=== PATIENT | male | born 1995 | race Hispanic/Latino ===

== ENCOUNTER 2018-12-31 23:14 | Emergency (ER) | payer OTHER ==
[2018-12-31] MEDS ORDERED: TETANUS & DIPHTHERIA TOX,ADULT 0.5 ML VIAL ONE (23:45)
[2019-01-01] MEDS ORDERED: LIDOCAINE 1% MPF 30 ML VIAL ONE (00:01)
--- NOTE | 2019-01-01 00:32 | ER ---
Nurse's Notes [facility] Name: Andie Olivas Age: 23 yrs Sex: Male : 1995 Arrival Date: 12/31/2018 Time: 23:18 Bed 5 Private MD: Diagnosis: Dislocation base right 4th metacarpal. ( Reduced ) Presentation: 12/31 23:24 Presenting complaint: Patient states: that he was mad and hit a post. Now having right fc hand/wrist pain. Noted small puncture wound at base of 4th finger. Transition of care: patient was not received from another setting of care. Onset of symptoms was December 31, 2018 at 22:30. Risk Assessment: Do you want to hurt yourself or someone else? Patient reports no desire to harm self or others. Initial Sepsis Screen: Does the patient meet any 2 criteria? No. Patient's initial sepsis screen is negative. Does the patient have a suspected source of infection? No. Patient's initial sepsis screen is negative. Care prior to arrival: None. 23:24 Method Of Arrival: Ambulatory 23:24 Acuity: MARY LOU 4 Triage Assessment: 23:40 Injury Description: Deformity sustained to right hand. rr5 Historical: - Allergies: 23:26 No Known Allergies; fc - Home Meds: 23:26 None [Active]; fc - PMHx: 23:26 None; fc - PSHx: 23:26 None; fc - Immunization history:: Last tetanus immunization: unknown, Flu vaccine is not up to date. - Social history:: Smoking status: Patient uses tobacco products, Vaps, Patient uses alcohol, occasionally. - Ebola Screening: : Patient negative for fever greater than or equal to 101.5 degrees Fahrenheit, and additional compatible Ebola Virus Disease symptoms Patient denies exposure to infectious person Patient denies travel to an Ebola-affected area in the 21 days before illness onset. Screenin:27 Abuse screen: Denies threats or abuse. Nutritional screening: No deficits noted. Tuberculosis screening: Fall Risk None identified. Assessment: 23:40 General: Appears uncomfortable, Behavior is calm, cooperative, appropriate for age. ea Pain: Complains of pain in right hand. Neuro: Level of Consciousness is awake, alert, obeys commands, Oriented to person, place, time, situation. Cardiovascular: Patient's skin is warm and dry. Respiratory: Airway is patent Respiratory effort is even, unlabored, Respiratory pattern is regular, symmetrical. Musculoskeletal: Capillary refill < 3 seconds, Bony deformity noted of dorsum of right hand. 01/01 00:50 Reassessment: patient refused for arm sling. rr5 00:52 Reassessment: Patient appears in no apparent distress at this time. Patient is alert, rr5 oriented x 3, equal unlabored respirations, skin warm/dry/pink. discharge instruction given and explained without complaints made. cannot undo the armsling order. patient refused to received the arm sling. Patient states symptoms have improved. Vital Signs: 12/31 23:26 BP 141 / 93; Pulse 68; Resp 18; Temp 97.9(O); Pulse Ox 98% on R/A; Weight 136.08 kg fc (R); Height 6 ft. 3 in. (190.50 cm) (R); Pain 6/10; 01/01 00:50 BP 136 / 78; Pulse 65; Resp 17; Temp 97.5; Pulse Ox 100% ; rr5 04 23:26 Body Mass Index 37.50 (136.08 kg, 190.50 cm) ED Course: 12/31 23:18 Patient arrived in ED. es 23:21 Paul Luciano MD is Attending Physician. pkl 23:21 Thong Harry RN is Primary Nurse. rr5 23:25 Triage completed. fc 23:26 Arm band placed on Patient placed in an exam room, on a stretcher. fc 23:27 Patient has correct armband on for positive identification. Bed in low position. Call fc light in reach. 23:27 No provider procedures requiring assistance completed. fc 23:34 X-ray completed. Portable x-ray completed in exam room. Patient tolerated procedure sg4 well. 23:36 Hand Right 3 View XRAY In Process Unspecified. EDMS 01/01 00:29 Martin Gallo MD is Referral Physician. pkl 00:54 Patient did not have IV access during this emergency room visit. rr5 00:57 Hand Right 3 View XRAY In Process Unspecified. 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 Exp: ea 10/16/2020. Lot #: [id number]. } Route: IM; Site: right deltoid; 01/01 00:56 Follow up: Response: No adverse reaction rr5 00:41 Drug: KeFLEX 500 mg Route: PO; rr5 00:56 Follow up: Response: No adverse reaction rr5 Outcome: 00:31 Discharge ordered by . zeinab 00:54 Discharged to home ambulatory, with friend. rr5 00:54 Condition: stable 00:54 Discharge instructions given to patient, Instructed on discharge instructions, follow up and referral plans. medication usage, Demonstrated understanding of instructions, follow-up care, medications, Prescriptions given X 2. 00:55 Patient left the ED. rr5 Signatures: Dispatcher [employer] EDPaul Jara MD MD pkl Salyer, Edna es Chretien, Felicia, RN RN Kelsey Mcfarlane RN RN ea Garcia, Susana [facility] Thong Harry RN RN rr5
--- NOTE | 2019-01-01 00:32 | EDPHYS ---
Physician Documentation [facility] Name: Andie Olivas Age: 23 yrs Sex: Male : 1995 Arrival Date: 12/31/2018 Time: 23:18 Bed 5 Private MD: ED Physician Paul Luciano HPI: 12/31 23:26 This 23 yrs old Male presents to ER via Ambulatory with complaints of Hand pkl Injury. 23:26 The patient or guardian reports injury, a laceration, superficial ( 0.5 cm ). The pkl complaints affect the right hand diffusely. Context: resulted from using own fist to strike, wooden pole. Onset: The symptoms/episode began/occurred just prior to arrival. Historical: - Allergies: 23:26 No Known Allergies; fc - Home Meds: 23:26 None [Active]; fc - PMHx: 23:26 None; fc - PSHx: 23:26 None; fc - Immunization history:: Last tetanus immunization: unknown, Flu vaccine is not up to date. - Social history:: Smoking status: Patient uses tobacco products, Vaps, Patient uses alcohol, occasionally. - Ebola Screening: : Patient negative for fever greater than or equal to 101.5 degrees Fahrenheit, and additional compatible Ebola Virus Disease symptoms Patient denies exposure to infectious person Patient denies travel to an Ebola-affected area in the 21 days before illness onset. ROS: 23:26 Eyes: Negative for injury, pain, redness, and discharge, ENT: Negative for injury, pkl pain, and discharge, Neck: Negative for injury, pain, and swelling, Cardiovascular: Negative for chest pain, palpitations, and edema, Respiratory: Negative for shortness of breath, cough, wheezing, and pleuritic chest pain, Abdomen/GI: Negative for abdominal pain, nausea, vomiting, diarrhea, and constipation, Back: Negative for injury and pain, : Negative for injury, bleeding, discharge, and swelling, Neuro: Negative for headache, weakness, numbness, tingling, and seizure. 23:26 MS/extremity: Positive for injury or acute deformity, pain, swelling, tenderness, of the dorsum right hand. 23:26 Skin: Positive for superficial laceration ( 0.5 cm ) between right 4th and 5th fingers. Exam: 23:26 Head/Face: Normocephalic, atraumatic. Eyes: Pupils equal round and reactive to light, pkl extra-ocular motions intact. Lids and lashes normal. Conjunctiva and sclera are non-icteric and not injected. Cornea within normal limits. Periorbital areas with no swelling, redness, or edema. ENT: Nares patent. No nasal discharge, no septal abnormalities noted. Tympanic membranes are normal and external auditory canals are clear. Oropharynx with no redness, swelling, or masses, exudates, or evidence of obstruction, uvula midline. Mucous membranes moist. Neck: Trachea midline, no thyromegaly or masses palpated, and no cervical lymphadenopathy. Supple, full range of motion without nuchal rigidity, or vertebral point tenderness. No Meningismus. Chest/axilla: Normal chest wall appearance and motion. Nontender with no deformity. No lesions are appreciated. Cardiovascular: Regular rate and rhythm with a normal S1 and S2. No gallops, murmurs, or rubs. Normal PMI, no JVD. No pulse deficits. Respiratory: Lungs have equal breath sounds bilaterally, clear to auscultation and percussion. No rales, rhonchi or wheezes noted. No increased work of breathing, no retractions or nasal flaring. Abdomen/GI: Soft, non-tender, with normal bowel sounds. No distension or tympany. No guarding or rebound. No evidence of tenderness throughout. Back: No spinal tenderness. No costovertebral tenderness. Full range of motion. 23:26 Musculoskeletal/extremity: Extremities: grossly normal except: noted in the right hand: pain, swelling, tenderness. 23:26 Skin: Superficial laceration ( 0.5 cm ) between right 4th and 5th fingers. Vital Signs: 23:26 BP 141 / 93; Pulse 68; Resp 18; Temp 97.9(O); Pulse Ox 98% on R/A; Weight 136.08 kg fc (R); Height 6 ft. 3 in. (190.50 cm) (R); Pain 03/07; 01/01 00:50 BP 136 / 78; Pulse 65; Resp 17; Temp 97.5; Pulse Ox 100% ; rr5 12/31 23:26 Body Mass Index 37.50 (136.08 kg, 190.50 cm) Procedures: 00:17 Closed reduction of dislocation of base right 4th metacarpal performed by myself. Post pkl reduction showed satisfactory reduction of dislocation. Right wrist splinted with wrist splint.. MDM: 12/31 23:21 Patient medically screened. pkl 01/01 00:17 Data reviewed: vital signs, nurses notes, radiologic studies, plain films. ED course: pkl Xrays showed dislocation of the base of 4th metacarpal.. 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 Exp: ea 10/16/2020. Lot #: [id number]. } Route: IM; Site: right deltoid; 01/01 00:56 Follow up: Response: No adverse reaction rr5 00:41 Drug: KeFLEX 500 mg Route: PO; rr5 00:56 Follow up: Response: No adverse reaction rr5 Disposition: 01/01/19 00:31 Discharged to Home. Impression: Dislocation base right 4th metacarpal. ( Reduced ). - Condition is Stable. - Prescriptions for Ultram 50 mg Oral Tablet - take 1 tablet by ORAL route every 8 hours As needed; 20 tablet. Keflex 500 mg Oral Capsule - take 1 capsule by ORAL route every 6 hours for 7 days; 28 capsule. - Work release form, Medication Reconciliation Form, Thank You Letter, Antibiotic Education, Prescription Opioid Use form. - Follow up: Martin Gallo MD; When: 2 - 3 days; Reason: Re-evaluation by your physician. - Problem is new. - Symptoms have improved. Signatures: Dispatcher [employer] EDMS Paul Luciano MD MD pkl Chretien, Felicia RN Kelsey Davis RN RN ea Roque, Raymond RN RN rr5 Corrections: (The following items were deleted from the chart) 00:55 00:31 01/01/2019 00:31 Discharged to Home. Impression: Dislocation base right 4th rr5 metacarpal. ( Reduced ). Condition is Stable. Forms are Medication Reconciliation Form, Thank You Letter, Antibiotic Education, Prescription Opioid Use. Follow up: Martin Gallo; When: 2 - 3 days; Reason: Re-evaluation by your physician. Problem is new. Symptoms have improved. pkl
[2019-01-01] MEDS ORDERED: CEPHALEXIN 250 MG CAP ONE (00:49)
--- NOTE | 2019-01-01 07:50 | RAD REPORT ---
EXAM DESCRIPTION: RAD - Hand Right 3 View - 12/31/2018 11:36 pm CLINICAL HISTORY: Right hand pain, blunt force trauma COMPARISON: None. FINDINGS: There is dorsal dislocation of the fourth and fifth metacarpal bones at the articulations with the carpal bones. On the lateral projection there is a small fracture fragment 1-2 mm in size. I t is uncertain if this comes from the fourth or fifth metacarpal. The second and third metacarpals ap pear to maintain normal articulation with the second carpal row. No fracture of the phalanges identif ied. Soft tissue swelling present over the dorsum of the hand. No air or foreign body. IMPRESSION: Dorsal dislocation of the fourth and fifth metacarpals from the carpal metacarpal joints . Lateral view shows a small 1-2 mm fracture fragment at the base of 1 of the 2 metacarpals. The small fracture fragment is not further localized.
--- NOTE | 2019-01-01 07:51 | RAD REPORT ---
EXAM DESCRIPTION: RAD - Hand Right 3 View - 01/01/2019 12:57 am CLINICAL HISTORY: Right hand pain, trauma, metacarpal dislocation COMPARISON: Right hand same day FINDINGS: A three-view right hand examination performed following reduction maneuvers. The dislocate d fourth and fifth metacarpal bones have been reduced to anatomic position. A small 1- 2 millimeter c rescent-shaped fracture fragment is seen over the dorsum of the wrist. Origin of the fracture fragmen t is not further delineated. No carpal bone fracture or dislocation. No other acute finding. IMPRESSION: The fourth and fifth metacarpal dislocations have been reduced back to anatomic position .
== END 2019-01-01 00:55 | disposition home or self-care (01) ==
LOC: ER 23:14
PROC: 0RSWXZZ Reposition Right Finger Phalangeal Joint, External Approach (ICD-10-PCS; principal; 2019-01-01)
DX: S63.254A Unspecified dislocation of right ring finger, initial encounter (principal); W22.09XA Striking against other stationary object, initial encounter; Y93.89 Activity, other specified; Y92.9 Unspecified place or not applicable; Z72.0 Tobacco use
CPT/HCPCS: 90714; 99283